=== PATIENT | female | born 1960 | race Caucasian/White ===

== ENCOUNTER 2016-07-23 10:06 | Inpatient (IN) | payer MEDICAID ==
[~2016-07-23] VITALS: Ht 152.4 cm; Wt 58.1 kg
[2016-07-23] MEDS ORDERED: SOD CHLORIDE 0.9% 1,000 ML IV STA (11:00)
[2016-07-23] MEDS ORDERED: morphine 2 MG INJ IV STA (11:00)
[2016-07-23] MEDS ORDERED: ONDANSETRON 4 MG INJ IV STA (11:00)
[2016-07-23 11:43] LABS: ADD SCAN DIFF NO
[2016-07-23 11:50] LABS: ABNORMAL IP MESSAGE 1; BASOPHILS % 0.2 % (0.0-2.0); HEMATOCRIT 43.8 % (37.0-47.0); HEMOGLOBIN 15.2 g/dl (12.0-16.0); LYMPHOCYTES # 0.6 10^3/ul (0.8-2.9); LYMPHOCYTES % 5.6 % (15.0-51.0); MEAN CORPUSCULAR HEMOGLOBIN 32.1 pg (29.0-33.0); MEAN CORPUSCULAR HGB CONC 34.7 g/dl (32.0-37.0); MEAN CORPUSCULAR VOLUME 92.4 fl (82.0-101.0); MEAN PLATELET VOLUME 10.6 fl (7.4-10.4); MONOCYTE # 0.3 10^3/ul (0.3-0.9); MONOCYTES % 2.9 % (0.0-11.0); NEUTROPHIL # 9.6 10^3/ul (1.6-7.5); NEUTROPHILS % 90.8 % (39.0-77.0); PLATELET COUNT 220 10^3/UL (140-415); RED BLOOD COUNT 4.74 10^6/ul (4.20-5.40); RED CELL DISTRIBUTION WIDTH 12.8 % (11.5-14.5); WHITE BLOOD COUNT 10.5 10^3/ul (4.8-10.8)
--- NOTE | 2016-07-23 11:59 | RADRPT ---
PROCEDURE: CT Abdomen and Pelvis without contrast. CLINICAL INDICATION: Abdominal pain with nausea. TECHNIQUE: CT scan of the abdomen and pelvis without contrast was performed on a multidetector hig h-resolution CT scanner. The patient was scanned without intravenous contrast. Coronal and sagittal reformatted images were obtained from the axial source images. Images were reviewed on a high-resol [employer] PACS workstation. The total exam CTDI equals 6.12 mGy and the total exam DLP equals 338.13 mGy -cm. One or more of the following dose reduction techniques were used: Automated exposure control. Adjustment of the mA and/or kV according to patient size. Use of iterative reconstruction technique. COMPARISON: None FINDINGS: CT abdomen: The lung bases are remarkable for 5 mm ovoid nodule in the right lower lobe along the fissure likely representing a pulmonary nodule. There is approximately 6 mm nodule in the right middle lobe latera lly on image 3 - 14. The heart size is normal, without pericardial thickening or effusion. The phani er is normal in size and density without focal mass or intrahepatic biliary dilatation. The spleen is normal in size and homogeneous in density. The stomach is partially collapsed, but is grossly un remarkable. The pancreas as visualized is normal. The gallbladder is unremarkable. There is no denae dence for biliary dilatation. The adrenal glands are symmetric and normal. The kidneys are symmetr ically unremarkable as well. No renal calculus or obstructive uropathy or mass lesion is seen. The aorta is of normal caliber. There is no retroperitoneal lymphadenopathy. The latosha hepatis eron on is clear. The bowel and mesentery, as visualized, are equally unremarkable. A few scattered colo urvashi diverticula are seen without evidence of acute diverticulitis. CT pelvis: The base of the appendix is normal. There is distension of the appendix tip with surrounding mild i nflammatory changes suggesting early appendicitis. There is no extraluminal gas or periappendiceal fluid collection. The small bowel loops situated within the pelvis are unremarkable. The pelvic or alberto are normal. The pelvic sidewalls and inguinal regions are clear. The sigmoid colon and rectum are unremarkable. No mass, lymphadenopathy, or free fluid is seen. No acute inflammation is seen. No osteolytic or osteoblastic lesion is detected. IMPRESSION: 1. Mild distension of the appendix tip with surrounding mild inflammatory changes in keeping with e karla appendicitis. No extraluminal gas or periappendiceal fluid collection. 2. A few scattered colonic diverticuli without evidence of acute diverticulitis. 3. Small pulmonary nodules measures up to 6 mm in the right lower lobe. Recommend CT chest follow- up in 6-12 months depending on the patient's risk factor to ensure stability. RPTAT: BB .Jean Claude Hampton MD, MD Date Time Electronically viewed and signed by .Jean Claude Hampton MD, on 07/23/2016 11:59 .O/
[2016-07-23 12:10] LABS: ALBUMIN 4.9 g/dl (3.3-4.9); ALBUMIN/GLOBULIN RATIO 1.48; BILIRUBIN,INDIRECT 0.2 mg/dl (0-1.1); BILIRUBIN,TOTAL 0.2 mg/dl (0.2-1.3); CALCIUM 9.3 mg/dl (8.4-10.2); CREATININE 0.44 mg/dl (0.44-1.00); POTASSIUM 4.2 mmol/L (3.5-5.1); TOTAL PROTEIN 8.2 g/dl (6.1-8.1)
[2016-07-23] MEDS ORDERED: PIPER-TAZO 3.375 GM IV (PMX) 100 ML IVPB ONE (12:30)
[2016-07-23] MEDS ORDERED: SOD CHLORIDE 0.9% 1,000 ML IV ONE (12:30)
[2016-07-23 12:50] LABS: INR 0.91; PROTIME 12.2 Sec (12.2-14.2)
[2016-07-23 12:51] LABS: PARTIAL THROMBOPLASTIN TIME 29.3 Sec (25.0-35.0)
[2016-07-23 13:50] LABS: ADD UMIC YES; URINE BILIRUBIN (Dip) NEGATIVE (NEGATIVE); URINE BLOOD (Dip) TRACE (NEGATIVE); URINE COLOR LT. YELLOW (YELLOW); URINE GLUCOSE (Dip) NEGATIVE (NEGATIVE); URINE KETONES (Dip) NEGATIVE (NEGATIVE); URINE LEUKOCYTE ESTERASE (Dip) NEGATIVE (NEGATIVE); URINE NITRITE (Dip) NEGATIVE (NEGATIVE); URINE TOTAL PROTEIN (Dip) NEGATIVE (NEGATIVE); URINE UROBILINOGEN (Dip) 0.2 E.U./dL (0.1-1.0)
[2016-07-23 14:07] LABS: BACTERIA,URINE FEW
--- NOTE | 2016-07-23 14:49 | ERA ---
ER Documentation Chief Complaint Date/Time DATE: 07/23/16 TIME: 14:45 Chief Complaint ABD PAIN, NAUSEA, VOMITING HPI This 56-year-old female comes in with 1 day of nausea vomiting and upper and right lower quadrant abdominal pain. She has had chills but denies any fevers. She has had no diarrhea. She did admit to occasional constipation. States that she is otherwise healthy with no medical problems. She does not see a primary care doctor. ROS All systems reviewed and are negative except as per history of present illness. Medications Home Meds No Active Prescriptions or Reported Meds Allergies Allergies: Coded Allergies: No Known Allergy (Unverified , 07/23/16) PMhx/Soc Hx Psychiatric Problems: No Hx Miscellaneous Medical Probl: Yes (breast CA left) Hx Alcohol Use: No Hx Substance Use: No Hx Tobacco Use: No Smoking Status: Never smoker Physical Exam Vitals Vital Signs Date Time Temp Pulse Resp B/P Pulse Ox O2 Delivery O2 Flow Rate FiO2 07/23/16 11:31 62 20 157/76 100 Room Air 07/23/16 10:09 97.6 59 17 125/72 100 Physical Exam Const: [] Mild distress appears uncomfortable. Head: Atraumatic Eyes: Normal Conjunctiva ENT: Normal External Ears, Nose and Mouth. Neck: Full range of motion..~ No meningismus. Resp: Clear to auscultation bilaterally Cardio: Regular rate and rhythm, no murmurs Abd: Soft, tenderness most of the mid upper abdomen, also tenderness at the most superior portion of the right lower quadrant without any McBurney's tenderness, no guarding or rebound, non distended. Normal bowel sounds Skin: No petechiae or rashes Back: No midline or flank tenderness Ext: No cyanosis, or edema Neur: Awake and alert and oriented 3, no focal deficits Psych: Normal Mood and Affect Result Diagram: 07/23/16 1128 07/23/16 1128 Results 24 hrs Laboratory Tests Test 07/23/16 11:28 07/23/16 11:50 07/23/16 13:12 White Blood Count 10.510^3/ul Red Blood Count 4.7410^6/ul Hemoglobin 15.2g/dl Hematocrit 43.8% Mean Corpuscular Volume 92.4fl Mean Corpuscular Hemoglobin 32.1pg Mean Corpuscular Hemoglobin Concent 34.7g/dl Red Cell Distribution Width 12.8% Platelet Count 20634^3/UL Mean Platelet Volume 10.6fl Neutrophils % 90.8% Lymphocytes % 5.6% Monocytes % 2.9% Eosinophils % 0.0% Basophils % 0.2% Nucleated Red Blood Cells % 0.0/100WBC Neutrophils # 9.610^3/ul Lymphocytes # 0.610^3/ul Monocytes # 0.310^3/ul Eosinophils # 0.010^3/ul Basophils # 0.010^3/ul Nucleated Red Blood Cells # 0.010^3/ul Sodium Level 137mmol/L Potassium Level 4.2mmol/L Chloride Level 102mmol/L Carbon Dioxide Level 28mmol/L Anion Gap 11 Blood Urea Nitrogen 11mg/dl Creatinine 0.44mg/dl Glucose Level 124mg/dl Calcium Level 9.3mg/dl Total Bilirubin 0.2mg/dl Direct Bilirubin 0.00mg/dl Indirect Bilirubin 0.2mg/dl Aspartate Amino Transf (AST/SGOT) 32IU/L Alanine Aminotransferase (ALT/SGPT) 30IU/L Alkaline Phosphatase 79IU/L Total Protein 8.2g/dl Albumin 4.9g/dl Globulin 3.30g/dl Albumin/Globulin Ratio 1.48 Lipase 62U/L Prothrombin Time 12.2Sec Prothrombin Time Ratio 1.0 INR International Normalized Ratio 0.91 Activated Partial Thromboplast Time 29.3Sec Urine Color LT. YELLOW Urine Clarity CLEAR Urine pH 7.0 Urine Specific [place] 1.010 Urine Ketones NEGATIVE Urine Nitrite NEGATIVE Urine Bilirubin NEGATIVE Urine Urobilinogen 0.2 E.U./dL Urine Leukocyte Esterase NEGATIVE Urine Microscopic RBC 5-10/HPF Urine Microscopic WBC 0-2/HPF Urine Epithelial Cells FEW Urine Amorphous Urates FEW Urine Bacteria FEW Urine Hemoglobin TRACE Urine Glucose NEGATIVE% Urine Total Protein NEGATIVE Current Medications Medications (Trade) Dose Ordered Sig/Gilda Route PRN Reason Start Time Stop Time Status Last Admin Dose Admin Sodium Chloride (NS) 1,000 ml @ 1,000 mls/hr Q1H STAT IV 07/23/16 11:00 07/23/16 11:59 DC 07/23/16 11:42 Morphine Sulfate (morphine) 2 mg ONCE STAT IV 07/23/16 11:00 07/23/16 11:01 DC 07/23/16 11:42 Ondansetron HCl 4 mg 4 mg ONCE STAT IV 07/23/16 11:00 07/23/16 11:01 DC 07/23/16 11:42 Sodium Chloride 1,000 ml @ 1,000 mls/hr Q1H ONCE IV 07/23/16 12:30 07/23/16 13:29 DC 07/23/16 12:36 Piperacillin Sod/ Tazobactam Sod (Zosyn 3.375gm/ 100 ml (Pmx)) 100 ml @ 200 mls/hr ONCE ONCE IVPB 07/23/16 12:30 07/23/16 12:59 DC 07/23/16 12:36 Morphine Sulfate (morphine) 4 mg ONCE STAT IV 07/23/16 14:53 07/23/16 14:54 DC 07/23/16 14:57 Ondansetron HCl (Zofran Inj) 4 mg BRIDGE ORDER PRN IV NAUSEA AND/OR VOMITING 07/23/16 15:00 07/24/16 14:59 Acetaminophen (Tylenol Tab) 650 mg ER BRIDGE PRN PO MILD PAIN/FEVER 07/23/16 15:00 07/24/16 14:59 Procedures/MDM CT findings consistent with early appendicitis. Patient has no elevated white count or fever currently. Does have symptoms consistent with possible appendicitis. Was given 2 mg of morphine which helped alleviate some of her pain, was given a liter of normal saline for hydration, was given Zofran which did help her nausea. Has continued lower abdominal pain and was given 4 mg of morphine. After CT findings I added on another liter of fluid, coagulation studies, Zosyn. She has no signs of sepsis currently. Calls placed to Dr. Steele still awaiting callback. Spoke with Dr. Alvarenga who will be admitting the patient to the medical surgical floor. CT abdomen pelvis interpretation: Dilated appendix with some fat stranding consistent with early appendicitis, no obstruction, no free air, no fractures Departure Diagnosis: Primary Impression: Appendicitis Additional Impressions: Abdominal pain Vomiting Condition: Stable RUSS SCHMIDTUA Jul 23, 2016 14:49
[2016-07-23] MEDS ORDERED: morphine 4 MG/ML VIAL IV STA (14:53)
[2016-07-23] MEDS ORDERED: ACETAMINOPHEN 325 MG TAB PO PRN (15:00)
[2016-07-23] MEDS ORDERED: ONDANSETRON 4 MG INJ IV PRN ×2 (15:00→16:00)
[2016-07-23] MEDS ORDERED: hydrALAzine 20 MG INJ IV PRN (16:00)
[2016-07-23] MEDS ORDERED: HYDROCODONE/APAP (5/325) TAB PO PRN (16:00)
[2016-07-23] MEDS ORDERED: MAGNESIUM HYDROXIDE 30ML CUP PO PRN (16:00)
[2016-07-23] MEDS ORDERED: NACL 0.9% 3 ML SYG IV SCH (16:00)
[2016-07-23] MEDS: D5W-0.45 NACL + KCL 20 MEQ 1,000 ML IV SCH (16:14)
--- NOTE | 2016-07-23 17:03 | HP ---
DATE OF ADMISSION: 07/23/2016 TIME OF EVALUATION: 1500. REASON FOR ADMISSION: Abdominal pain. CONSULTANTS: Dr. Vin Steele, general surgery. HISTORY OF PRESENT ILLNESS: This is a 56-year-old female who denied any past medical history other than a remote history of left-sided breast cancer , who came to the emergency room with a chief complaint of epigastric abdominal pain with associated nonbilious, nonbloody vomiting, starting from 2 a.m. on 02/2016. The patient verbalized that she had been perfectly alright until 07/22. The patient denied eating anything unusual. The patient denied any fevers or chills. The patient denied any history of gastric reflux. The patient does not take any medications regularly at home. The patient denied any diarrhea, hematochezia or melena. She denied any dysuria or hematuria. In the emergency room, the patient was noticed to be afebrile. The patient had no underlying leukocytosis. The patient underwent a CT scan of the abdomen and pelvis that showed mild distention of the appendix tip with surrounding mild inflammatory changes, suggesting early appendicitis, with a few scattered colonic diverticula, without evidence of acute diverticulitis. The CT also showed small pulmonary nodules measuring up to 6 mm in the right lower lobe. The patient was treated with IV analgesics and IV antibiotics, along with IV fluids, in the emergency room. PAST MEDICAL HISTORY: Left breast cancer. PAST SURGICAL HISTORY: Left mastectomy, . HOME MEDICATIONS: None. ALLERGIES: NO KNOWN DRUG ALLERGIES. SOCIAL HISTORY: The patient lives at home. Denied any use of tobacco, alcohol or illicit drugs. REVIEW OF SYSTEMS: A 12-point review of systems were done and the remainder of review of systems were negative other than what is mentioned in the history of present illness. PHYSICAL EXAMINATION: VITAL SIGNS: Temperature 97.6, pulse of 64, respiratory rate 18, blood pressure 134/96, oxygen saturation 98% on room air. GENERAL: This is a well-built, well-nourished female patient, lying in bed, in no apparent distress. HEENT: Head normocephalic and atraumatic. Eyes, anicteric sclerae. Conjunctivae clear. ENT: Nasal septum is midline. Oral mucosa is dry. NECK: Supple. No JVD noticed. RESPIRATORY: Bilaterally clear to auscultation. No adventitious breath sounds. No use of accessory muscles of respiration. CARDIAC: Regular rate and rhythm, S1, S2 heard. ABDOMEN: Soft. Bowel sounds hypoactive in all 4 quadrants. Mild tenderness in the epigastric area. No rebound tenderness or guarding. GENITOURINARY: Deferred. EXTREMITIES: No cyanosis, no clubbing, no edema. Peripheral pulses palpable. NEUROLOGIC: The patient is awake, alert and oriented. Cranial nerves are grossly intact. LABORATORY AND DIAGNOSTIC DATA: WBC 10.5, hemoglobin 15.2, hematocrit 43.8, platelet count 220. Sodium 137, potassium 4.2, chloride 102, carbon dioxide 28 , anion gap 11, BUN 11, creatinine 0.44, glucose 124, calcium 9.3, AST 32, ALT 30, alkaline phosphatase is 79, PT 12.2, INR 0.91, PTT 29.3. CT scan of the abdomen and pelvis: Mild distention of the appendix tip with surrounding mild inflammatory changes, suggesting early appendicitis. No extraluminal gas or periappendiceal fluid collection. A few scattered colonic diverticula, without evidence of acute diverticulitis. There are small pulmonary nodules measuring up to 6 cm in the right lower lobe. Urinalysis: Urine nitrite negative, urine leukocyte esterase negative, urine microscopic WBC 0 to 2. IMPRESSION: This is a 56-year-old female who came to the emergency room with a chief complaint of abdominal pain with associated episodes of nonbilious, nonbloody vomiting, who was found evidence of early appendicitis and will be admitted here for further treatment and evaluation. ASSESSMENT AND PLAN: 1. Acute abdominal pain. CT evidence of early appendicitis. The patient will be kept n.p.o. The patient will be started on appropriate analgesics. She will be started on IV fluids. The patient will be started on antibiotics. A general surgery consult will be called on this patient. 2. Remote history of breast cancer, currently in remission. Plan. The patient will be admitted to the inpatient medical/surgical floor. The patient will be started on DVT prophylaxis and gastrointestinal prophylaxis. The patient will remain a FULL CODE. The patient will be kept n.p.o. except for medications. Activities will be as tolerated. The rest of the patient's management will be based on the clinical course, the results of diagnostic studies, and input from consultants. Based on the patient's clinical presentation, she most probably requires at least a 1 midnight's stay for further management and evaluation of her clinical presentation. The case and management of this patient was fully discussed with Dr. Broussard. RICARDO BROUSSARD MD, AM/BEATRIZ Conf#: [id number] DID#: [id number] MTDD
[2016-07-23 18:04] VITALS: BP 118/67; PULSE 63; RESP 16
[2016-07-23] MEDS: FAMOTIDINE 20 MG INJ IV SCH (20:04)
[2016-07-23] MEDS: morphine 2 MG INJ IV PRN (20:08)
[2016-07-23 20:17] VITALS: BP 144/65; RESP 18
[2016-07-23 20:40] VITALS: Ht 152.4 cm; Wt 58.1 kg
[2016-07-23] MEDS: PIPER-TAZO 3.375 GM IV (PMX) 100 ML IVPB SCH (21:01)
[2016-07-24] VITALS (16 sets, daily range): BP systolic 82–127; BP diastolic 43–71; PULSE 50–85; RESP 12–27
[2016-07-24] MEDS: D5W-0.45 NACL + KCL 20 MEQ 1,000 ML IV SCH ×3 (02:04→21:32)
[2016-07-24] MEDS: morphine 2 MG INJ IV PRN ×2 (04:42→12:26)
[2016-07-24] MEDS: PIPER-TAZO 3.375 GM IV (PMX) 100 ML IVPB SCH ×3 (05:19→21:36)
[2016-07-24 05:31] LABS: ADD SCAN DIFF NO
[2016-07-24 05:53] LABS: BASOPHILS % 0.2 % (0.0-2.0); EOSINOPHILS % 0.2 % (0.0-7.0); HEMATOCRIT 35.4 % (37.0-47.0); HEMOGLOBIN 12.1 g/dl (12.0-16.0); LYMPHOCYTES # 1.5 10^3/ul (0.8-2.9); LYMPHOCYTES % 16.8 % (15.0-51.0); MEAN CORPUSCULAR HEMOGLOBIN 31.4 pg (29.0-33.0); MEAN CORPUSCULAR HGB CONC 34.2 g/dl (32.0-37.0); MEAN CORPUSCULAR VOLUME 91.9 fl (82.0-101.0); MEAN PLATELET VOLUME 10.1 fl (7.4-10.4); MONOCYTE # 0.7 10^3/ul (0.3-0.9); MONOCYTES % 8.1 % (0.0-11.0); NEUTROPHIL # 6.4 10^3/ul (1.6-7.5); NEUTROPHILS % 74.2 % (39.0-77.0); PLATELET COUNT 198 10^3/UL (140-415); RED BLOOD COUNT 3.85 10^6/ul (4.20-5.40); WHITE BLOOD COUNT 8.7 10^3/ul (4.8-10.8)
[2016-07-24 06:09] LABS: CHOL/HDL RATIO 3.4 RATIO; PHOSPHORUS 3.5 mg/dl (2.5-4.9)
[2016-07-24 06:12] LABS: ALBUMIN/GLOBULIN RATIO 1.73; BILIRUBIN,INDIRECT 0.3 mg/dl (0-1.1); BILIRUBIN,TOTAL 0.3 mg/dl (0.2-1.3); CALCIUM 8.2 mg/dl (8.4-10.2); CREATININE 0.51 mg/dl (0.44-1.00); POTASSIUM 3.8 mmol/L (3.5-5.1); TOTAL PROTEIN 6.3 g/dl (6.1-8.1)
[2016-07-24] MEDS ORDERED: LIDOCAINE 2% (SDV) 5 ML INJ ONE (07:00)
[2016-07-24] MEDS ORDERED: PROPOFOL 200 MG INJ ONE (07:00)
[2016-07-24] MEDS: FAMOTIDINE 20 MG INJ IV SCH ×2 (09:05→21:33)
--- NOTE | 2016-07-24 11:51 | PN ---
Date/Time of Note Date/Time of Note DATE: 07/24/16 TIME: 11:48 Assessment/Plan VTE Prophylaxis VTE Prophylaxis Intervention: SCD's Lines/Catheters IV Catheter Type (from Nrsg): Peripheral IV Assessment/Plan Assessment/Plan 1. acute appendicitis 2. H/o Breast cancer currenty in remission Plan: IVF D51/2 nS with KCL IV abx zosyn G surge is evaluating pt to decide about any surgery plan Protonix for GI prophylaxis SCD for DVT prophylaxis Subjective 24 Hr Interval Summary Free Text/Dictation RLQ pain, afebrile, Exam/Review of Systems Vital Signs Vitals Vital Signs Date Time Temp Pulse Resp B/P Pulse Ox O2 Delivery O2 Flow Rate FiO2 07/24/16 07:05 98.3 65 16 89/55 97 07/23/16 18:04 Room Air Intake and Output 07/23/16 07/23/16 07/24/16 15:00 23:00 07:00 Intake Total 100 ml 1300 ml Balance 100 ml 1300 ml Exam GENERAL: This is a well-built, well-nourished female patient, lying in bed, in no apparent distress. HEENT: Head normocephalic and atraumatic. Eyes, anicteric sclerae. Conjunctivae clear. ENT: Nasal septum is midline. Oral mucosa is dry. NECK: Supple. No JVD noticed. RESPIRATORY: Bilaterally clear to auscultation. No adventitious breath sounds. No use of accessory muscles of respiration. CARDIAC: Regular rate and rhythm, S1, S2 heard. ABDOMEN: Soft. Bowel sounds hypoactive in all 4 quadrants. Mild tenderness in the epigastric area. No rebound tenderness or guarding. GENITOURINARY: Deferred. EXTREMITIES: No cyanosis, no clubbing, no edema. Peripheral pulses palpable. NEUROLOGIC: The patient is awake, alert and oriented. Cranial nerves are grossly intact. Results Result Diagram: 07/24/16 0441 07/24/16440 Results 24 hrs Laboratory Tests Test 07/23/16 11:50 07/23/16 13:12 07/24/16 04:41 Prothrombin Time 12.2 Prothrombin Time Ratio 1.0 INR International Normalized Ratio 0.91 Activated Partial Thromboplast Time 29.3 Urine Color LT. YELLOW Urine Clarity CLEAR Urine pH 7.0 Urine Specific [place] 1.010 Urine Ketones NEGATIVE Urine Nitrite NEGATIVE Urine Bilirubin NEGATIVE Urine Urobilinogen 0.2 E.U./dL Urine Leukocyte Esterase NEGATIVE Urine Microscopic RBC 5-10 Urine Microscopic WBC 0-2 Urine Epithelial Cells FEW Urine Amorphous Urates FEW Urine Bacteria FEW Urine Hemoglobin TRACE Urine Glucose NEGATIVE Urine Total Protein NEGATIVE White Blood Count 8.7 Red Blood Count 3.85 L Hemoglobin 12.1 # Hematocrit 35.4 L Mean Corpuscular Volume 91.9 Mean Corpuscular Hemoglobin 31.4 Mean Corpuscular Hemoglobin Concent 34.2 Red Cell Distribution Width 13.0 Platelet Count 198 Mean Platelet Volume 10.1 Neutrophils % 74.2 Lymphocytes % 16.8 Monocytes % 8.1 Eosinophils % 0.2 Basophils % 0.2 Nucleated Red Blood Cells % 0.0 Neutrophils # 6.4 Lymphocytes # 1.5 Monocytes # 0.7 Eosinophils # 0.0 Basophils # 0.0 Nucleated Red Blood Cells # 0.0 Sodium Level 140 Potassium Level 3.8 Chloride Level 106 Carbon Dioxide Level 26 Anion Gap 12 Blood Urea Nitrogen 5 L Creatinine 0.51 Glucose Level 109 Calcium Level 8.2 L Phosphorus Level 3.5 Magnesium Level 2.0 Total Bilirubin 0.3 Direct Bilirubin 0.00 Indirect Bilirubin 0.3 Aspartate Amino Transf (AST/SGOT) 20 Alanine Aminotransferase (ALT/SGPT) 31 Alkaline Phosphatase 55 Total Protein 6.3 # Albumin 4.0 Globulin 2.30 Albumin/Globulin Ratio 1.73 Triglycerides Level 122 Cholesterol Level 151 LDL Cholesterol, Calculated 83 HDL Cholesterol 44 Cholesterol/HDL Ratio 3.4 Medications Medications Current Medications Potassium Chloride/Dextrose/ Sod Cl (D5-1/2ns + KCl 20 Meq) 1,000 ml @ 100 mls/ hr Q10H IV Last administered on 07/24/16 02:04; Admin Dose 100 MLS/HR; Start at 15:48 Ondansetron HCl (Zofran Inj) 4 mg Q6H PRN IV NAUSEA AND/OR VOMITING Last administered on 07/23/16 20:15; Admin Dose 4 MG; Start 07/23/16 at 16:00 Acetaminophen/ Hydrocodone Bitart ([place] (5/325)) 1 tab Q6H PRN PO MODERATE PAIN LEVEL 4-6; Start 07/23/16 at 16:00 Magnesium Hydroxide (Milk Of Mag) 30 ml DAILY PRN PO CONSTIPATION; Start at 16:00 Famotidine 20 mg 20 mg Q12 IV Last administered on 07/24/16 09:05; Admin Dose 20 MG; Start 07/23/16 at 21:00 Piperacillin Sod/ Tazobactam Sod (Zosyn 3.375gm/ 100 ml (Pmx)) 100 ml @ 200 mls /hr Q8 IVPB Last administered on 07/24/16 05:19; Admin Dose 200 MLS/HR; Start 07/23/16 at 22:00 Hydralazine HCl (Apresoline) 10 mg Q6H PRN IV SBP>160; Start 07/23/16 at 16:00 Morphine Sulfate (morphine) 2 mg Q4H PRN IV pain Last administered on 07/24/16 04:42; Admin Dose 2 MG; Start 07/23/16 at 20:00 ABIODUN PEÑA MD Jul 24, 2016 11:51
[2016-07-24] MEDS ORDERED: ROPIVACAINE 0.5 % 30 ML VIAL ONE (12:28)
--- NOTE | 2016-07-24 13:15 | CONS ---
Date/Time of Note Date/Time of Note DATE: 07/23/16 TIME: 23:06 Assessment/Plan Assessment/Plan Chief Complaint/Hosp Course 1. Abdominal pain with CT diagnosis of acute appendicitis -abx -ivf -OR for appendectomy 2. Breast ca hx -routine f/u with imaging and oncology 3. Pulmonary nodules, in setting of breast ca -recommend further w/u per pulmonary and oncology 4. Osteoporosis -medical management 5. Diverticulosis -nutritional and lifestyle optimization Thank you very much for consulting me in this patient's care, Late entry 07/23 Problems: Consultation Date/Type/Reason Admit Date/Time Jul 23, 2016 at 14:59 Date of Consultation: Jul 23, 2016 Type of Consultation: Gen Surgical Reason for Consultation Abdominal pain Acute mild appendicitis Referring Provider: GREG SCHMIDT DO Hx of Present Illness Earl Presley is a 56yo old female who presents with chief complaint of epigastric abdominal pain with associated nonbilious, nonbloody vomiting, starting from 2 a.m. on 07/23/2016. The patient verbalized that she had been perfectly alright until 07/22/2016. The patient denied eating anything unusual. The patient denied any fevers or chills. The patient denied any history of gastric reflux. The patient does not take any medications regularly at home. The patient denied any diarrhea, hematochezia or melena. She denied any dysuria or hematuria. No park/visual or neuro changes. No trauma or sick contacts. No cp/sob/cough/blood per mouth or rectum. In the emergency room, vitals are stable and she is afebrile. Labs show left shift. CT scan of the abdomen and pelvis showed mild distention of the appendix tip with surrounding mild inflammatory changes, suggesting early appendicitis, with a few scattered colonic diverticula, without evidence of acute diverticulitis. The CT also showed small pulmonary nodules measuring up to 6 mm in the right lower lobe. The patient was treated with IV analgesics and IV antibiotics, along with IV fluids, in the emergency room. Surgical consult is obtained for further evaluation and treatment. 12-point review of systems negative unless addressed in the history of present illness. Past Medical History Left breast cancer Diverticulosis Pulmonary nodules, RLL Osteoporosis Past Surgical History Left mastectomy . Family History Significant Family History: no pertinent family hx Social History The patient lives at home. Denied any use of tobacco, alcohol or illicit drugs. Smoking Status: Never smoker Exam/Review of Systems Vital Signs Vitals Vital Signs Date Time Temp Pulse Resp B/P Pulse Ox O2 Delivery O2 Flow Rate FiO2 07/24/16 07:05 98.3 65 16 89/55 97 07/23/16 18:04 Room Air Intake and Output 07/23/16 07/23/16 07/24/16 15:00 23:00 07:00 Intake Total 100 ml 1300 ml Balance 100 ml 1300 ml Exam GENERAL: This is a well-built, well-nourished female patient, lying in bed, in no apparent distress. HEENT: Head normocephalic and atraumatic. Eyes, anicteric sclerae. Conjunctivae clear. ENT: Nasal septum is midline. Oral mucosa is dry. NECK: Supple. No JVD noticed. RESPIRATORY: Normal resp effort. No use of accessory muscles of respiration. CARDIAC: Regular rate and rhythm, S1, S2 ABDOMEN: Soft. Bowel sounds hypoactive in all 4 quadrants. Mild tenderness in RLQ. No rebound tenderness or guarding. GENITOURINARY: Deferred. EXTREMITIES: No cyanosis, no edema. Peripheral pulses palpable. NEUROLOGIC: The patient is awake, alert and oriented. Moves all 4 grossly LYMPHATICS: No inguinal or cervical LNs Results Result Diagram: 07/24/16 0441 07/24/16440 Results 24 hrs Laboratory Tests Test 07/23/16 13:12 07/24/16 04:41 Urine Color LT. YELLOW Urine Clarity CLEAR Urine pH 7.0 Urine Specific [place] 1.010 Urine Ketones NEGATIVE Urine Nitrite NEGATIVE Urine Bilirubin NEGATIVE Urine Urobilinogen 0.2 E.U./dL Urine Leukocyte Esterase NEGATIVE Urine Microscopic RBC 5-10 Urine Microscopic WBC 0-2 Urine Epithelial Cells FEW Urine Amorphous Urates FEW Urine Bacteria FEW Urine Hemoglobin TRACE Urine Glucose NEGATIVE Urine Total Protein NEGATIVE White Blood Count 8.7 Red Blood Count 3.85 L Hemoglobin 12.1 # Hematocrit 35.4 L Mean Corpuscular Volume 91.9 Mean Corpuscular Hemoglobin 31.4 Mean Corpuscular Hemoglobin Concent 34.2 Red Cell Distribution Width 13.0 Platelet Count 198 Mean Platelet Volume 10.1 Neutrophils % 74.2 Lymphocytes % 16.8 Monocytes % 8.1 Eosinophils % 0.2 Basophils % 0.2 Nucleated Red Blood Cells % 0.0 Neutrophils # 6.4 Lymphocytes # 1.5 Monocytes # 0.7 Eosinophils # 0.0 Basophils # 0.0 Nucleated Red Blood Cells # 0.0 Sodium Level 140 Potassium Level 3.8 Chloride Level 106 Carbon Dioxide Level 26 Anion Gap 12 Blood Urea Nitrogen 5 L Creatinine 0.51 Glucose Level 109 Calcium Level 8.2 L Phosphorus Level 3.5 Magnesium Level 2.0 Total Bilirubin 0.3 Direct Bilirubin 0.00 Indirect Bilirubin 0.3 Aspartate Amino Transf (AST/SGOT) 20 Alanine Aminotransferase (ALT/SGPT) 31 Alkaline Phosphatase 55 Total Protein 6.3 # Albumin 4.0 Globulin 2.30 Albumin/Globulin Ratio 1.73 Triglycerides Level 122 Cholesterol Level 151 LDL Cholesterol, Calculated 83 HDL Cholesterol 44 Cholesterol/HDL Ratio 3.4 Medications Medications Current Medications Potassium Chloride/Dextrose/ Sod Cl (D5-1/2ns + KCl 20 Meq) 1,000 ml @ 100 mls/ hr Q10H IV Last administered on 07/24/16 02:04; Admin Dose 100 MLS/HR; Start at 15:48 Ondansetron HCl (Zofran Inj) 4 mg Q6H PRN IV NAUSEA AND/OR VOMITING Last administered on 07/23/16 20:15; Admin Dose 4 MG; Start 07/23/16 at 16:00 Acetaminophen/ Hydrocodone Bitart ([place] (5/325)) 1 tab Q6H PRN PO MODERATE PAIN LEVEL 4-6; Start 07/23/16 at 16:00 Magnesium Hydroxide (Milk Of Mag) 30 ml DAILY PRN PO CONSTIPATION; Start at 16:00 Famotidine 20 mg 20 mg Q12 IV Last administered on 07/24/16 09:05; Admin Dose 20 MG; Start 07/23/16 at 21:00 Piperacillin Sod/ Tazobactam Sod (Zosyn 3.375gm/ 100 ml (Pmx)) 100 ml @ 200 mls /hr Q8 IVPB Last administered on 07/24/16 05:19; Admin Dose 200 MLS/HR; Start 07/23/16 at 22:00 Hydralazine HCl (Apresoline) 10 mg Q6H PRN IV SBP>160; Start 07/23/16 at 16:00 Morphine Sulfate (morphine) 2 mg Q4H PRN IV pain Last administered on 07/24/16 12:26; Admin Dose 2 MG; Start 07/23/16 at 20:00 RONALD HOWARD MD Jul 24, 2016 13:15
--- NOTE | 2016-07-24 13:16 | PN ---
Date/Time of Note Date/Time of Note DATE: 07/24/16 TIME: 13:15 Assessment/Plan Lines/Catheters IV Catheter Type (from [facility]): Peripheral IV Assessment/Plan Chief Complaint/Hosp Course 1. Abdominal pain with CT diagnosis of acute appendicitis -abx -ivf -OR for appendectomy 2. Breast ca hx -routine f/u with imaging and oncology 3. Pulmonary nodules, in setting of breast ca -recommend further w/u per pulmonary and oncology 4. Osteoporosis -medical management 5. Diverticulosis -nutritional and lifestyle optimization Thank you, Problems: Subjective 24 Hr Interval Summary Min pain persists. No f/c. No n/v. No cp/sob. No cough. No park/dizzy/visual or neuro changes. No dysuria. Wants to proceed with surgery. Exam/Review of Systems Vital Signs Vitals Vital Signs Date Time Temp Pulse Resp B/P Pulse Ox O2 Delivery O2 Flow Rate FiO2 07/24/16 07:05 98.3 65 16 89/55 97 07/23/16 18:04 Room Air Intake and Output 07/23/16 07/23/16 07/24/16 15:00 23:00 07:00 Intake Total 100 ml 1300 ml Balance 100 ml 1300 ml Exam Free Text/Dictation GENERAL: NAD, comfortable HEENT: Head normocephalic and atraumatic. Eyes, anicteric sclerae. Conjunctivae clear. ENT: Nasal septum is midline. Oral mucosa is dry. NECK: Supple. No JVD noticed. RESPIRATORY: Normal resp effort. No use of accessory muscles of respiration. CARDIAC: Regular rate and rhythm, S1, S2 ABDOMEN: Soft. Bowel sounds hypoactive in all 4 quadrants. Mild tenderness in RLQ. No rebound tenderness or guarding. GENITOURINARY: Deferred. EXTREMITIES: No cyanosis, no edema. Peripheral pulses palpable. NEUROLOGIC: The patient is awake, alert and oriented. Moves all 4 grossly LYMPHATICS: No inguinal or cervical LNs Results Result Diagram: 07/24/1644007/24/16 044 RONALD HOWARD MD Jul 24, 2016 13:16
[2016-07-24] MEDS ORDERED: PHENYLephrine (100 MCG/ML) 5ML SYG ONE (14:19)
[2016-07-24] MEDS ORDERED: SOD CHLORIDE 0.9% 500 ML IV STA (14:37)
[2016-07-24] MEDS ORDERED: SOD CHLORIDE 0.9% 500 ML IV ONE (15:00)
[2016-07-24] MEDS ORDERED: LIDOCAINE 1% (STERILE-PAK) 30 ML INJ ONE (16:05)
[2016-07-24] MEDS ORDERED: BUPIVACAINE 0.25%/EPI (SDV) 30 ML INJ ONE (16:05)
[2016-07-24] MEDS ORDERED: PROPOFOL 20 ML ONE (18:23)
[2016-07-24] MEDS ORDERED: FENTAnyl 50 MCG/ML VIAL ONE ×2 (18:24→19:10)
[2016-07-24] MEDS ORDERED: hydrALAzine 20 MG INJ IV PRN (19:00)
[2016-07-24] MEDS ORDERED: FENTAnyl 50 MCG/ML VIAL IV PRN ×3 (19:00)
[2016-07-24] MEDS ORDERED: DIPHENHYDRAMINE 50 MG INJ IV PRN (19:00)
[2016-07-24] MEDS ORDERED: EPHEDrine SULFATE 50 MG/5 ML SYG IV PRN (19:00)
[2016-07-24] MEDS ORDERED: HYDROmorphONE (0.2 MG/ML) 10ML SYG IV PRN ×3 (19:00)
[2016-07-24] MEDS ORDERED: ONDANSETRON 4 MG INJ IV PRN (19:00)
[2016-07-24] MEDS ORDERED: MEPERIDINE 25 MG INJ IV PRN (19:00)
[2016-07-24] MEDS ORDERED: METOCLOPRAMIDE 10 MG INJ IV PRN (19:00)
[2016-07-24] MEDS ORDERED: LABETALOL HCL 20MG INJ IV PRN (19:00)
[2016-07-24] MEDS ORDERED: DEXAMETHASONE 4 MG/ML 1 ML INJ ONE (19:13)
[2016-07-24] MEDS ORDERED: ONDANSETRON 4 MG INJ ONE (19:14)
[2016-07-24] MEDS ORDERED: NEOSTIGMINE 3 MG/3 ML SYRINGE ONE (19:26)
[2016-07-24] MEDS ORDERED: GLYCOPYRROLATE 0.4 MG INJ ONE (19:26)
--- NOTE | 2016-07-24 19:44 | OPR ---
Date/Time of Note Date/Time of Note DATE: 07/24/16 TIME: 19:42 Operative Report Procedure Date: Jul 24, 2016 Procedure Description Preoperative Diagnosis 1. Acute appendicitis Postoperative Diagnosis 1. Acute appendicitis 2. Right ovarian cystic lesion Operation Performed 1. Laparoscopic appendectomy 2. [place], [address] 3. Laparoscopic guided bilateral transversus abdominis plane block Surgeon: RONALD HOWARD MD Anesthesia: general (Plus local plus regional) Anesthesiologist: Riya MARISCAL Estimated Blood Loss: 5 ml's Specimens: Appendix Tubes/Drains Complications: None Pt Condition Post Procedure: stable Disposition: PACU Indications: Per consult note. Risks include but are not limited to bleeding, infection, abscess, seroma, leak , damage to intestines or any intra-abdominal/intrapelvic structures, hernia formation, chronic pain, need for re-operations or further surgeries, MO, stroke , PE, DVT, pneumonia, organ failures, or even . Procedure Note: Patient was brought into the operating room, placed supine on the operating table, SCDs were placed, left arm was tucked, all pressure points were well- padded, preoperative antibiotics administered, and after induction of anesthesia , he was prepped and draped in usual sterile fashion, and timeout was performed. Incision was made supraumbilically and the Veress needle was safely place into the abdomen. After negative sip test, abdomen was insufflated to 15 mmHg with CO2. At this point Veress was removed and the 5 mm blunt trocar was placed into the abdomen. Laparoscopy was performed and no injuries were identified using a 5 mm 30 scope. Under direct visualization another 5 mm port was placed and left lower quadrant and 12 mm port and suprapubic region avoiding the bladder. All incision sites were injected with quarter percent Marcaine with 1% lidocaine with epi. Bilateral transversus abdominis plane block was performed under laparoscopic visualization to aid with pain control intra-and postoperatively. Patient was placed in Trendelenburg and right side up. Right ovarian cystic lesion was identified. Picture was taken. The appendix was found to be minimally inflamed. The base was transected using Endo ABBEY white load automatic 35 mm stapler just on the cecum. The linh were fired fully. The mesoappendix was transected with another white load stapler. Hemostasis was fully obtained. The appendix was placed in an Endo Catch bag and removed through the suprapubic port site. That fascia was closed with Endo Close and 0 Vicryl in a figure-of- eight manner avoiding the bladder. Ports and CO2 were removed under direct visualization, wounds were fully irrigated, and skin was closed in subcuticular fashion using 4-0 Monocryl. Dermabond was applied. All counts were correct and the end of the operation 2. Patient was extubated and transferred to recovery room in stable condition. RONALD HOWARD MD Jul 24, 2016 19:44
[2016-07-24] MEDS ORDERED: ACETAMINOPHEN 500 MG TAB PO PRN (20:00)
[2016-07-25] MEDS: D5W-0.45 NACL + KCL 20 MEQ 1,000 ML IV SCH ×4 (04:04→20:15)
[2016-07-25] MEDS: morphine 2 MG INJ IV PRN ×2 (04:16→14:44)
[2016-07-25] MEDS: PIPER-TAZO 3.375 GM IV (PMX) 100 ML IVPB SCH ×3 (05:51→21:42)
[2016-07-25 06:07] LABS: ADD SCAN DIFF NO
[2016-07-25 06:09] LABS: ABNORMAL IP MESSAGE 1; BASOPHILS % 0.2 % (0.0-2.0); HEMATOCRIT 34.7 % (37.0-47.0); HEMOGLOBIN 11.9 g/dl (12.0-16.0); LYMPHOCYTES # 0.4 10^3/ul (0.8-2.9); MEAN CORPUSCULAR HEMOGLOBIN 31.9 pg (29.0-33.0); MEAN CORPUSCULAR HGB CONC 34.3 g/dl (32.0-37.0); MEAN PLATELET VOLUME 10.3 fl (7.4-10.4); MONOCYTE # 0.2 10^3/ul (0.3-0.9); MONOCYTES % 2.8 % (0.0-11.0); NEUTROPHIL # 5.7 10^3/ul (1.6-7.5); PLATELET COUNT 181 10^3/UL (140-415); RED BLOOD COUNT 3.73 10^6/ul (4.20-5.40); RED CELL DISTRIBUTION WIDTH 12.5 % (11.5-14.5); WHITE BLOOD COUNT 6.3 10^3/ul (4.8-10.8)
[2016-07-25 06:31] LABS: ALBUMIN 3.9 g/dl (3.3-4.9); ALBUMIN/GLOBULIN RATIO 1.44; BILIRUBIN,INDIRECT 0.2 mg/dl (0-1.1); BILIRUBIN,TOTAL 0.2 mg/dl (0.2-1.3); CALCIUM 8.4 mg/dl (8.4-10.2); CREATININE 0.52 mg/dl (0.44-1.00); POTASSIUM 4.3 mmol/L (3.5-5.1); TOTAL PROTEIN 6.6 g/dl (6.1-8.1)
[2016-07-25 06:43] LABS: NEUTROPHILS % 90.4 % (39.0-77.0)
[2016-07-25 06:44] LABS: LYMPHOCYTES % 6.3 % (15.0-51.0)
[2016-07-25 08:00] VITALS: BP 114/56; RESP 16
[2016-07-25] MEDS: FAMOTIDINE 20 MG INJ IV SCH ×2 (08:45→20:11)
--- NOTE | 2016-07-25 15:18 | PN ---
Date/Time of Note Date/Time of Note DATE: 07/25/16 TIME: 15:17 Assessment/Plan VTE Prophylaxis VTE Prophylaxis Intervention: SCD's Lines/Catheters IV Catheter Type (from [facility]): Peripheral IV Assessment/Plan Assessment/Plan 1. acute appendicitis s/p laproscopic appendectomy POD # 1 2. H/o Breast cancer currenty in remission Plan: advance diet, continue IVF, if tolerates diet overnight then plan for d/c tomorrow pt has not eaten anything since AM IV abx zosyn G surg following Protonix for GI prophylaxis SCD for DVT prophylaxis Subjective 24 Hr Interval Summary Free Text/Dictation doing ok, BP stable, afebrile, no food started until recently Exam/Review of Systems Vital Signs Vitals Vital Signs Date Time Temp Pulse Resp B/P Pulse Ox O2 Delivery O2 Flow Rate FiO2 07/25/16 08:00 98.4 58 16 114/56 97 07/24/16 20:15 Room Air Intake and Output 07/24/16 07/24/16 07/25/16 15:00 23:00 07:00 Intake Total 1000 ml 600 ml 1490 ml Balance 1000 ml 600 ml 1490 ml Exam GENERAL: This is a well-built, well-nourished female patient, lying in bed, in no apparent distress. HEENT: Head normocephalic and atraumatic. Eyes, anicteric sclerae. Conjunctivae clear. ENT: Nasal septum is midline. Oral mucosa is dry. NECK: Supple. No JVD noticed. RESPIRATORY: Bilaterally clear to auscultation. No adventitious breath sounds. No use of accessory muscles of respiration. CARDIAC: Regular rate and rhythm, S1, S2 heard. ABDOMEN: Soft. Bowel sounds hypoactive in all 4 quadrants. Mild tenderness in the epigastric area. No rebound tenderness or guarding. GENITOURINARY: Deferred. EXTREMITIES: No cyanosis, no clubbing, no edema. Peripheral pulses palpable. NEUROLOGIC: The patient is awake, alert and oriented. Cranial nerves are grossly intact. Results Result Diagram: 07/25/16 0517 07/25/16 0517 Results 24 hrs Laboratory Tests Test 07/25/16 05:17 White Blood Count 6.3 # Red Blood Count 3.73 L Hemoglobin 11.9 L Hematocrit 34.7 L Mean Corpuscular Volume 93.0 Mean Corpuscular Hemoglobin 31.9 Mean Corpuscular Hemoglobin Concent 34.3 Red Cell Distribution Width 12.5 Platelet Count 181 Mean Platelet Volume 10.3 Neutrophils % 90.4 H Lymphocytes % 6.3 L Monocytes % 2.8 Eosinophils % 0.0 Basophils % 0.2 Nucleated Red Blood Cells % 0.0 Neutrophils # 5.7 Lymphocytes # 0.4 L Monocytes # 0.2 L Eosinophils # 0.0 Basophils # 0.0 Nucleated Red Blood Cells # 0.0 Sodium Level 142 Potassium Level 4.3 Chloride Level 107 Carbon Dioxide Level 26 Anion Gap 13 Blood Urea Nitrogen 6 L Creatinine 0.52 Glucose Level 144 Calcium Level 8.4 Total Bilirubin 0.2 Direct Bilirubin 0.00 Indirect Bilirubin 0.2 Aspartate Amino Transf (AST/SGOT) 23 Alanine Aminotransferase (ALT/SGPT) 28 Alkaline Phosphatase 50 Total Protein 6.6 Albumin 3.9 Globulin 2.70 Albumin/Globulin Ratio 1.44 Medications Medications Current Medications Potassium Chloride/Dextrose/ Sod Cl (D5-1/2ns + KCl 20 Meq) 1,000 ml @ 150 mls/ hr Q6H40M IV Last administered on 07/25/16 04:04; Admin Dose 150 MLS/HR; Start 07/23/16 at 15:48 Ondansetron HCl (Zofran Inj) 4 mg Q6H PRN IV NAUSEA AND/OR VOMITING Last administered on 07/23/16 20:15; Admin Dose 4 MG; Start 07/23/16 at 16:00 Magnesium Hydroxide (Milk Of Mag) 30 ml DAILY PRN PO CONSTIPATION; Start at 16:00 Famotidine 20 mg 20 mg Q12 IV Last administered on 07/25/16 08:45; Admin Dose 20 MG; Start 07/23/16 at 21:00 Piperacillin Sod/ Tazobactam Sod (Zosyn 3.375gm/ 100 ml (Pmx)) 100 ml @ 200 mls /hr Q8 IVPB Last administered on 07/25/16 14:45; Admin Dose 200 MLS/HR; Start 07/23/16 at 22:00 Hydralazine HCl (Apresoline) 10 mg Q6H PRN IV SBP>160; Start 07/23/16 at 16:00 Acetaminophen (Tylenol Tab) 500 mg Q6H PRN PO pain 1-3; Start 07/24/16 at 20:00 Acetaminophen/ Hydrocodone Bitart ([place] (5/325)) 1 tab Q4H PRN PO MODERATE PAIN LEVEL 4-6; Start 07/25/16 at 18:00 ABIODUN PEÑA MD Jul 25, 2016 15:18
[2016-07-25] MEDS ORDERED: HYDROCODONE/APAP (5/325) TAB PO PRN (18:00)
[2016-07-25 20:03] VITALS: BP 97/52; RESP 18
--- NOTE | 2016-07-25 23:12 | PN ---
Date/Time of Note Date/Time of Note DATE: 07/25/16 TIME: 23:09 Assessment/Plan Lines/Catheters IV Catheter Type (from Nrs): Peripheral IV Assessment/Plan Chief Complaint/Hosp Course 1. Abdominal pain with CT diagnosis of acute appendicitis s/p lap appy 07/24 -diet as tolerated -dc planning 2. Breast ca hx -routine f/u with imaging and oncology 3. Pulmonary nodules, in setting of breast ca -recommend further w/u per pulmonary and oncology 4. Osteoporosis -medical management 5. Diverticulosis -nutritional and lifestyle optimization Thank you, Problems: Subjective 24 Hr Interval Summary s/p Lap appy 07/24. Min pain. No f/c. No n/v. No cp/sob. No cough. No park/ dizzy/visual or neuro changes. No dysuria. Exam/Review of Systems Vital Signs Vitals Vital Signs Date Time Temp Pulse Resp B/P Pulse Ox O2 Delivery O2 Flow Rate FiO2 07/25/16 20:03 98.4 62 18 97/52 97 07/24/16 20:15 Room Air Intake and Output 07/24/16 07/24/16 07/25/16 15:00 23:00 07:00 Intake Total 1000 ml 600 ml 1490 ml Balance 1000 ml 600 ml 1490 ml Exam Free Text/Dictation GENERAL: NAD, comfortable HEENT: Head normocephalic and atraumatic. Eyes, anicteric sclerae. Conjunctivae clear. ENT: Nasal septum is midline. Oral mucosa is dry. NECK: Supple. No JVD noticed. RESPIRATORY: Normal resp effort. No use of accessory muscles of respiration. CARDIAC: Regular rate and rhythm, S1, S2 ABDOMEN: Soft. Bowel sounds hypoactive in all 4 quadrants. Mild tenderness in RLQ. No rebound tenderness or guarding. GENITOURINARY: Deferred. EXTREMITIES: No cyanosis, no edema. Peripheral pulses palpable. NEUROLOGIC: The patient is awake, alert and oriented. Moves all 4 grossly LYMPHATICS: No inguinal or cervical LNs Results Result Diagram: 07/25/1651607/25/1617 RONALD HOWARD MD Jul 25, 2016 23:12
[2016-07-26] MEDS ORDERED: ZOLPIDEM 5 MG TAB PO ONE (03:00)
[2016-07-26] MEDS: D5W-0.45 NACL + KCL 20 MEQ 1,000 ML IV SCH ×2 (05:34→11:24)
[2016-07-26] MEDS: PIPER-TAZO 3.375 GM IV (PMX) 100 ML IVPB SCH ×2 (05:34→15:05)
[2016-07-26 07:40] VITALS: BP 100/55; RESP 19
[2016-07-26] MEDS: FAMOTIDINE 20 MG INJ IV SCH (09:25)
--- NOTE | 2016-07-26 13:28 | PN ---
Date/Time of Note Date/Time of Note DATE: 07/26/16 TIME: 13:27 Assessment/Plan Lines/Catheters IV Catheter Type (from Nrs): Peripheral IV Rice in Place (from Nrs): No Assessment/Plan Chief Complaint/Hosp Course 1. Abdominal pain with CT diagnosis of acute appendicitis s/p lap appy 07/24 -diet as tolerated -dc planning ok from surgical standpoint 2. Breast ca hx -routine f/u with imaging and oncology 3. Pulmonary nodules, in setting of breast ca -recommend further w/u per pulmonary and oncology 4. Osteoporosis -medical management 5. Diverticulosis -nutritional and lifestyle optimization Thank you, Problems: Subjective 24 Hr Interval Summary s/p Lap appy 07/24. Min pain. No f/c. No n/v. No cp/sob. No cough. No park/ dizzy/visual or neuro changes. No dysuria. Exam/Review of Systems Vital Signs Vitals Vital Signs Date Time Temp Pulse Resp B/P Pulse Ox O2 Delivery O2 Flow Rate FiO2 07/26/16 07:40 97.6 59 19 100/55 99 07/24/16 20:15 Room Air Intake and Output 07/25/16 07/25/16 07/26/16 15:00 23:00 07:00 Intake Total 2330 ml 1550 ml Balance 2330 ml 1550 ml Exam Free Text/Dictation GENERAL: NAD, comfortable HEENT: Head normocephalic and atraumatic. Eyes, anicteric sclerae. Conjunctivae clear. ENT: Nasal septum is midline. Oral mucosa is dry. NECK: Supple. No JVD noticed. RESPIRATORY: Normal resp effort. No use of accessory muscles of respiration. CARDIAC: Regular rate and rhythm, S1, S2 ABDOMEN: Soft. Bowel sounds hypoactive in all 4 quadrants. Mild tenderness. No rebound tenderness or guarding. GENITOURINARY: Deferred. EXTREMITIES: No cyanosis, no edema. Peripheral pulses palpable. NEUROLOGIC: The patient is awake, alert and oriented. Moves all 4 grossly LYMPHATICS: No inguinal or cervical LNs Results Result Diagram: 07/25/1651607/25/16516 RONALD HOWARD MD Jul 26, 2016 13:28
--- NOTE | 2016-07-26 15:23 | PN ---
Date/Time of Note Date/Time of Note DATE: 07/26/16 TIME: 15:22 Assessment/Plan VTE Prophylaxis VTE Prophylaxis Intervention: SCD's Lines/Catheters IV [facility] Type (from [email or web address] Peripheral IV Urinary Cath still in place: No Assessment/Plan Assessment/Plan 1. acute appendicitis s/p laproscopic appendectomy POD # 2 2. H/o Breast cancer currenty in remission Plan: possible d/c plan today if cleared by Surgery IV abx zosyn G surg following Protonix for GI prophylaxis SCD for DVT prophylaxis Subjective 24 Hr Interval Summary Free Text/Dictation doing ok, BP stable, afebrile Exam/Review of Systems Vital Signs Vitals Vital Signs Date Time Temp Pulse Resp B/P Pulse Ox O2 Delivery O2 Flow Rate FiO2 07/26/16 07:40 97.6 59 19 100/55 99 07/24/16 20:15 Room Air Intake and Output 07/25/16 07/25/16 07/26/16 15:00 23:00 07:00 Intake Total 2330 ml 1550 ml Balance 2330 ml 1550 ml Exam GENERAL: This is a well-built, well-nourished female patient, lying in bed, in no apparent distress. HEENT: Head normocephalic and atraumatic. Eyes, anicteric sclerae. Conjunctivae clear. ENT: Nasal septum is midline. Oral mucosa is dry. NECK: Supple. No JVD noticed. RESPIRATORY: Bilaterally clear to auscultation. No adventitious breath sounds. No use of accessory muscles of respiration. CARDIAC: Regular rate and rhythm, S1, S2 heard. ABDOMEN: Soft. Bowel sounds hypoactive in all 4 quadrants. Mild tenderness in the epigastric area. No rebound tenderness or guarding. GENITOURINARY: Deferred. EXTREMITIES: No cyanosis, no clubbing, no edema. Peripheral pulses palpable. NEUROLOGIC: The patient is awake, alert and oriented. Cranial nerves are grossly intact. Results Result Diagram: 07/25/1651607/25/16516 Medications Medications Current Medications Potassium Chloride/Dextrose/ Sod Cl (D5-1/2ns + KCl 20 Meq) 1,000 ml @ 150 mls/ hr Q6H40M IV Last administered on 07/26/16t 05:34; Admin Dose 150 MLS/HR; Start 07/23/16 at 15:48 Ondansetron HCl (Zofran Inj) 4 mg Q6H PRN IV NAUSEA AND/OR VOMITING Last administered on 07/23/16 20:15; Admin Dose 4 MG; Start 07/23/16 at 16:00 Magnesium Hydroxide (Milk Of Mag) 30 ml DAILY PRN PO CONSTIPATION Last administered on 07/26/16 00:43; Admin Dose 30 ML; Start 07/23/16 at 16:00 Famotidine 20 mg 20 mg Q12 IV Last administered on 07/26/16 09:25; Admin Dose 20 MG; Start 07/23/16 at 21:00 Piperacillin Sod/ Tazobactam Sod (Zosyn 3.375gm/ 100 ml (Pmx)) 100 ml @ 200 mls /hr Q8 IVPB Last administered on 07/26/16 15:05; Admin Dose 200 MLS/HR; Start 07/23/16 at 22:00 Hydralazine HCl (Apresoline) 10 mg Q6H PRN IV SBP>160; Start 07/23/16 at 16:00 Acetaminophen (Tylenol Tab) 500 mg Q6H PRN PO pain 1-3; Start 07/24/16 at 20:00 Acetaminophen/ Hydrocodone Bitart ([place] (5/325)) 1 tab Q4H PRN PO MODERATE PAIN LEVEL 4-6 Last administered on 07/25/16 19:33; Admin Dose 1 TAB; Start 07/25 at 18:00 ABIODUN PEÑA MD Jul 26, 2016 15:23
--- NOTE | 2016-07-26 15:25 | PDOCDIS ---
Discharge Instructions CONDITION Patient Condition: Good HOME CARE INSTRUCTIONS: Special Diet: Regular ACTIVITY: Activity Restrictions: Slowly Increase Activity Rest between Activity Avoid heavy lifting Avoid Heavy Housework FOLLOW UP/APPOINTMENTS Appointments follow up with her own PMD through HMO Insurance in 1-2 week. Follow up with Gen Surgery Dr.Samuel Steele in1 week after discharge ABIODUN PEÑA MD Jul 26, 2016 15:25
[2016-07-26] MEDS ORDERED: FAMO-18 PO (15:26)
[2016-07-26] MEDS ORDERED: METO10TA92 PO (15:26)
--- NOTE | 2016-07-26 22:57 | DS ---
DATE OF ADMISSION: 07/23/2016 DATE OF DISCHARGE: 07/26/2016 FINAL DISCHARGE DIAGNOSES: 1. Acute appendicitis status post laparoscopic appendectomy. 2. History of breast cancer, currently in remission. 3. Intractable abdominal pain secondary to acute appendicitis. CONSULTATIONS DONE DURING THIS HOSPITALIZATION: General surgery consult, Dr. Vin Steele OPERATIONS PERFORMED DURING THIS HOSPITALIZATION: The patient underwent laparoscopic appendectomy d one by general surgery, Dr. Steele. HOSPITAL COURSE: This is a 56-year-old female who has a history of breast cancer, currently in idalmis ssion, presented with right lower quadrant abdominal pain, nausea, and inability to tolerate p.o. T he patient had a leukocytosis. She had a CT abdomen and pelvis done in the emergency room, which re vealed acute appendicitis. She was admitted to the med-surg floor, was given IV antibiotics, Zosyn. She was evaluated by general surgery, Dr. Steele, and recommended to have surgery. The patient s ubsequently went laparoscopic appendectomy done. She tolerated the surgery very well. Post surgica lly, she was transferred back to the med/surg floor where she was given some perioperative IV antibi otics. She was slowly gradually started on her diet, which was advanced to a soft diet, and she was tolerating her diet without having any difficulty. After she tolerated her diet and remained afebr ile, white count normalized, she was discharged home with prescriptions of p.o. antibiotics and Norc o. DISPOSITION: To home. DISCHARGE CONDITION: Stable and improved compared to admission. DISCHARGE ACTIVITIES: As tolerated, slowly resume to the normal baseline activity. DISCHARGE DIET: A soft consistency diet. DISCHARGE MEDICATIONS: She is given new prescriptions of: 1. Pepcid 20 mg p.o. b.i.d. 2. Reglan 10 mg p.o. q.6h. p.r.n. nausea, vomiting. DISCHARGE INSTRUCTIONS: She has been explained about the discharge plan and followup instructions. She understood and verbalized understanding. Total time spent in the discharge plan, explaining the patient about her discharge plan and followup instructions, communicating with the nursing staff took more than 60 minutes. Dictated By: ABIODUN PEÑA MD, KP/BEATRIZ Conf#: [id number] DID#: [id number] CC: ROB BROUSSARD MD;*End*
== END 2016-07-26 17:58 | disposition home or self-care (01) | DRG 343 ==
LOC: E/R 10:06 → PP2 14:59
PROVIDERS: ADMIT Family Medicine; ATTEND Family Medicine
PROC: 0DTJ4ZZ Resection of Appendix, Percutaneous Endoscopic Approach (ICD-10-PCS; principal; 2016-07-23)
DX: K35.80 Unspecified acute appendicitis (principal); M81.0 Age-related osteoporosis without current pathological fracture; K57.90 Diverticulosis of intestine, part unspecified, without perforation or abscess without bleeding; Z85.3 Personal history of malignant neoplasm of breast
CPT/HCPCS: 36415; 74176; 80053; 80061; 81001; 83036; 83690; 83735; 84100; 84439; 84443; 84703; 85025; 85610; 85730; 88304; 96374; 96375; 96376; J1100; J1170; J2270; J2370; J2405; J2543; J2710; J2765; J2795; J3010; J3480; J7030; J7040